=== PATIENT | male | born 2000 | race Asian ===

== ENCOUNTER 2022-08-11 00:47 | Emergency (ER) | payer OTHER, SELFPAY ==
[2022-08-11 01:45] VITALS: BP 125/82; PULSE 97; RESP 18; TEMP 36.6; O2SAT 96; BMI 24.4
[2022-08-11 03:06] VITALS: PULSE 78; RESP 14; O2SAT 99
[2022-08-11 05:04] VITALS: BP 137/90; PULSE 70; RESP 16; O2SAT 99
--- NOTE | 2022-08-11 05:05 | ED.NURSE ---
pt awake, ambulated to restroom.
[2022-08-11] MEDS: ONDANSETRON ODT 4 MG TAB PO (05:34)
--- NOTE | 2022-08-11 05:50 | ED.NURSE ---
Pt switched to oxymask after neb. Pt talking now, doesn't always make sense to development writer. Dr. Julien to room to assess acco by Pt daughter
--- NOTE | 2022-08-11 06:13 | ED.NURSE ---
[facility] arrived to take pt back to campus.
--- NOTE | 2022-08-16 07:47 | ED_ITS ---
HPI - Alcohol General Chief Complaint: Alcohol/Intoxication Stated Complaint: Etoh Time Seen by Provider: 08/11/22 00:51 History of Present Illness HPI narrative: 21 yo man brought to the ER after being found to be obtunded due to severe alcohol intoxication. He was alert enough to deny ingesting other substances. He has been vomiting. No trauma is suspected. He is denying any pain. 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 Full ROS initially is not possible; reviewed later. Related Data Home Medications Medication Instructions Recorded Confirmed No Known Home Medications 08/11/22 08/11/22 Allergies Allergy/AdvReac Type Severity Reaction Status Date / Time No Known Drug Allergies Allergy Verified 08/11/22 01:50 Review of Systems Status of ROS Reports: unobtainable due to medical condition PFSH PFS Social History Smoking Status: Unknown if ever smoked Do you use any of these nicotine containing products: None How often do you have a drink containing alcohol: 2-3 times a week AUDIT-C Alcohol total score: 3 Non-prescribed substance use: denies use service: No Exam Narrative: Exam Narrative: Upon my initial evaluation, Mr. Katz appears to sleeping semi-recumbant in the exam bed. Large young man. He alerts enough on my initial questioning to spit on his shirted chest a couple of times. He is supporting his own airway. Breathing easily though quite obtunded. Eyes with symmetric and reactive pupils. Sclera is bilaterally quite injected. Head is atraumatic. Neck clearly supple. Lungs are clear Back without apparent injury Abdomen is soft and non-tender. Moving all well-perfused extremities that appear free of injury. There is red-stained vomitus on his clothes; less-of blood and more of pizza perhaps. He doesn't offer insight on his dietary choices this evening. Const: Documenting provider has reviewed patient's vital signs: yes Course Course Hospital Course: monitored for time in the ER Reevaluation(s) Reevaluation #1: alerts enough walk and converse before leaving the ER Vital Signs Vital signs: Initial Vital Signs Temperature 97.9 F 08/11/22 01:45 Temperature Source Temporal Artery Scan 08/11/22 01:45 Pulse Rate 97 08/11/22 01:45 Respiratory Rate 18 08/11/22 01:45 Blood Pressure 125/82 08/11/22 01:45 Blood Pressure Mean 96 08/11/22 01:45 Blood Pressure Position Semi-Fowlers 08/11/22 01:45 Pulse Oximetry 96 08/11/22 01:45 Oxygen Delivery Method 08/11/22 01:45 Vital Signs Temperature 97.9 F 08/11/22 01:45 Pulse Rate 97 08/11/22 01:45 Respiratory Rate 18 08/11/22 01:45 Blood Pressure 125/82 08/11/22 01:45 Pulse Oximetry 96 08/11/22 01:45 Oxygen Delivery Method 08/11/22 01:45 Temperature 97.9 F 08/11/22 01:45 Pulse Rate 70 08/11/22 05:04 Respiratory Rate 16 08/11/22 05:04 Blood Pressure 137/90 H 08/11/22 05:04 Pulse Oximetry 99 08/11/22 05:04 Oxygen Delivery Method 08/11/22 05:04 Discharge Plan Discharge Clinical Impression: Alcohol intoxication Patient Disposition: Home w/ Parent or Adult Condition: Improved Additional Instructions: Does not appear that excessive amounts of alcohol are particularly good for you. Please take more care in your drinking or do not drink Prescriptions: No Action No Known Home Medications Stand Alone Forms: MyHealth Info Instructions
== END 2022-08-11 06:13 | disposition home or self-care (01) ==
PROVIDERS: Emergency Provider Family Medicine
DX: F10.129 Alcohol abuse with intoxication, unspecified (principal)
CPT/HCPCS: 99282; 99283; A9270